=== PATIENT | female | born 1990 | race Caucasian/White ===

== ENCOUNTER 2016-02-19 09:34 | Emergency (ER) | payer OTHER ==
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
== END 2016-02-19 13:11 | disposition home or self-care (01) ==
LOC: EEVIPCON 09:34 → HOBED 09:34
DX: O36.8130 Decreased fetal movements, third trimester, not applicable or unspecified (principal); Z3A.34 34 weeks gestation of pregnancy
CPT/HCPCS: 59025